=== PATIENT | female | born 1990 | race Caucasian/White ===

== ENCOUNTER 2023-11-21 08:53 | Emergency (ER) | payer OTHER ==
[2023-11-21] MEDS: Meclizine 25 MG Tab PO ONE (10:50)
[2023-11-21] MEDS: Ondansetron 4 MG Tab.DIS PO ONE (10:50)
== END 2023-11-21 12:10 | disposition home or self-care (01) ==
LOC: JP.ED 08:53
DX: R42 Dizziness and giddiness (principal)
CPT/HCPCS: 99283; A9270; Q0162